=== PATIENT | female | born 1965 | race Caucasian/White ===

== ENCOUNTER 2017-09-06 12:28 | Emergency (ER) | payer MEDICARE ==
[~2017-09-06] VITALS: Ht 160 cm; Wt 107.5 kg
[2017-09-06 12:32] VITALS: BP 172/103
[2017-09-06] MEDS ORDERED: HYDROcodone/APAP 5/325 MG 1 TAB TAB PO ONE (14:35)
[2017-09-06 14:59] VITALS: BP 130/72
== END 2017-09-06 14:55 | disposition home or self-care (01) ==
LOC: MED 12:28
DX: S53.401A Unspecified sprain of right elbow, initial encounter (principal); S43.401A Unspecified sprain of right shoulder joint, initial encounter; M06.9 Rheumatoid arthritis, unspecified; Z85.830 Personal history of malignant neoplasm of bone; Z88.6 Allergy status to analgesic agent; Z88.0 Allergy status to penicillin; W10.9XXA Fall (on) (from) unspecified stairs and steps, initial encounter; Y93.89 Activity, other specified; Y92.34 Swimming pool (public) as the place of occurrence of the external cause; Y99.8 Other external cause status
CPT/HCPCS: 29105; 71046; 73030; 73080; 73560; 82948; 99284

== ENCOUNTER 2019-07-13 13:36 | Emergency (ER) | payer OTHER ==
[~2019-07-13] VITALS: Ht 160 cm; Wt 101.2 kg
[2019-07-13 13:50] VITALS: BP 175/90
--- NOTE | 2019-07-13 14:02 | NUR ---
pt ambulated to be with steady gait.
--- NOTE | 2019-07-13 14:04 | NUR ---
C/O LEFT LOWER TOOTH PAIN , LEFT CHEEK PAIN & SWELLING X LAST NIGHT.PT AWAKE, ALERT, AFIBRILE , AMBULATORY WITH STEADY GAIT. MED HX: DM, HTN, ARTHRITIS
--- NOTE | 2019-07-13 14:46 | NUR ---
eugenia ferrara at bedside evaluating pt.
[2019-07-13] MEDS ORDERED: HYDROcodone/APAP 5/325 MG 1 TAB TAB PO ONE (14:50)
[2019-07-13 15:04] VITALS: BP 140/89
--- NOTE | 2019-07-13 15:06 | NUR ---
Patient discharged with v/s stable. Written and verbal after care instructions given and explained regarding tooth pain. Patient alert, oriented and verbalized understanding of instructions. Ambulatory with steady gait. All questions addressed prior to discharge. ID band removed. Patient advised to follow up with PMD. Rx of clindamycin and norco given. Patient educated on indication of medication including possible reaction and side effects. Opportunity to ask questions provided and answered.
== END 2019-07-13 15:08 | disposition home or self-care (01) ==
LOC: MED 13:36
DX: K08.89 Other specified disorders of teeth and supporting structures (principal); E11.9 Type 2 diabetes mellitus without complications; Z88.0 Allergy status to penicillin; Z88.6 Allergy status to analgesic agent
CPT/HCPCS: 99283